=== PATIENT | female | born 2000 | race Hispanic/Latino ===

== ENCOUNTER 2021-05-18 22:50 | Emergency (ER) | payer MEDICAID, OTHER ==
[~2021-05-18] VITALS: Ht 157.5 cm; Wt 89.4 kg
[2021-05-18 23:46] LABS: BASOPHILS % (AUTO) 0.2 % (0.0-5.0); EOSINOPHILS % (AUTO) 0.1 % (0.0-8.0); HEMATOCRIT 45.9 % (36-48); LYMPHOCYTES % (AUTO) 24.4 % (21.0-51.0); MEAN CORPUSCULAR HEMOGLOBIN 30.5 pg (27.0-33.0); MEAN CORPUSCULAR HGB CONC 34.6 g/dL (32.0-36.0); MEAN CORPUSCULAR VOLUME 88.1 fL (79-99); MONOCYTES % (AUTO) 11.6 % (3.0-13.0); NEUTROPHILS % (AUTO) 63.5 % (40.0-77.0); PLATELET COUNT (AUTO) 309 K/uL (130-400); RED BLOOD CELL COUNT(AUTO) 5.21 MIL/uL (4.00-5.50); RED CELL DISTRIBUTION WIDTH 12.4 % (11.0-15.5); WHITE BLOOD COUNT (AUTO) 8.5 K/uL (4.8-10.8)
[2021-05-18 23:54] LABS: APPEARANCE,URINE Turbid (CLEAR); BILIRUBIN,URINE Moderate (NEGATIVE); COLOR,URINE Dark Yellow (YELLOW); GLUCOSE, URINE (UA) Negative (NEGATIVE); KETONES,URINE >=160 mg/dL (NEGATIVE); LEUKOCYTE ESTERASE ,URINE Small (NEGATIVE); NITRATE,URINE Negative (NEGATIVE); OCCULT BLOOD,URINE Negative (NEGATIVE); PROTEIN,URINE POS 2+ mg/dL (NEGATIVE)
[2021-05-19] MEDS: ONDANSETRON 4MG INJ IVP ONE
[2021-05-19] MEDS: LACTATED RINGERS 1000ML 1,000 ML IV ONE
[2021-05-19 00:09] LABS: ALBUMIN 4.1 g/dL (3.5-5.0); BILIRUBIN,TOTAL 0.9 mg/dL (0.2-1.0); CREATININE 0.7 mg/dL (0.5-1.5); TOTAL PROTEIN, SERUM 8.2 g/dL (6.0-8.3)
[2021-05-19 00:12] LABS: POTASSIUM 2.8 mmol/L (3.5-5.1)
[2021-05-19] MEDS ORDERED: POTASSIUM CHLORIDE 20 MEQ/100 ML BAG IV SCH (00:30)
[2021-05-19] MEDS: ONDANSETRON 4MG INJ ONE (00:33)
[2021-05-19] MEDS: POTASSIUM CHLORIDE 20MEQ/100ML 100 ML IV ONE (00:34)
[2021-05-19 00:37] LABS: BACTERIA,URINE Moderate /HPF (None Seen); MUCUS,URINE Moderate LPF (None Seen); SQUAMOUS EPITHELIAL CELL,UR Many /HPF (0-2)
[2021-05-19] MEDS: LACTATED RINGERS 1000ML IV ONE (02:00)
[2021-05-19 05:00] VITALS: BP 115/70
[2021-05-19] MEDS ORDERED: ONDA4TAB10 PO (05:26)
[2021-05-19] MEDS ORDERED: PREN-67 PO (05:27)
== END 2021-05-19 05:55 | disposition home or self-care (01) ==
LOC: EDH 22:50
DX: O21.1 Hyperemesis gravidarum with metabolic disturbance (principal); E86.0 Dehydration; O99.281 Endocrine, nutritional and metabolic diseases complicating pregnancy, first trimester; O41.10 Infection of amniotic sac and membranes, unspecified; O46.91 Antepartum hemorrhage, unspecified, first trimester; O99.511 Diseases of the respiratory system complicating pregnancy, first trimester; J45.909 Unspecified asthma, uncomplicated; Z3A.08 8 weeks gestation of pregnancy
CPT/HCPCS: 36415 ×2; 76817; 80053; 81001; 84132; 84702; 85025; 86900; 86901; 87088; 96361; 96365; 96375; 99285; J2405; J3480

== ENCOUNTER 2021-06-10 22:25 | Observation (INO) | payer OTHER ==
[~2021-06-10] VITALS: Ht 157.5 cm; Wt 87.1 kg
[~2021-06-10 22:25] MED LIST: ONDA4TAB10 PO; PREN-67 PO
[2021-06-10] MEDS ORDERED: ONDANSETRON 4MG INJ IVP ONE (23:00)
[2021-06-10] MEDS ORDERED: LACTATED RINGERS 1000ML 1,000 ML IV ONE (23:00)
[2021-06-10 23:09] LABS: BASOPHILS % (AUTO) 0.1 % (0.0-5.0); EOSINOPHILS % (AUTO) 0.1 % (0.0-8.0); HEMATOCRIT 42.9 % (36-48); LYMPHOCYTES % (AUTO) 18.3 % (21.0-51.0); MEAN CORPUSCULAR HEMOGLOBIN 30.9 pg (27.0-33.0); MEAN CORPUSCULAR HGB CONC 36.1 g/dL (32.0-36.0); MEAN CORPUSCULAR VOLUME 85.5 fL (79-99); MONOCYTES % (AUTO) 8.8 % (3.0-13.0); NEUTROPHILS % (AUTO) 72.4 % (40.0-77.0); PLATELET COUNT (AUTO) 239 K/uL (130-400); RED BLOOD CELL COUNT(AUTO) 5.02 MIL/uL (4.00-5.50); WHITE BLOOD COUNT (AUTO) 6.8 K/uL (4.8-10.8)
[2021-06-10 23:43] LABS: ALBUMIN 3.8 g/dL (3.5-5.0); CREATININE 0.7 mg/dL (0.5-1.5); TOTAL PROTEIN, SERUM 7.8 g/dL (6.0-8.3)
[2021-06-10 23:44] LABS: POTASSIUM 2.9 mmol/L (3.5-5.1)
[2021-06-10] MEDS ORDERED: POTASSIUM CHLORIDE 20MEQ/100ML 100 ML IV ONE (23:52)
[2021-06-10 23:57] LABS: APPEARANCE,URINE Turbid (CLEAR); BILIRUBIN,URINE Large (NEGATIVE); COLOR,URINE Orange (YELLOW); GLUCOSE, URINE (UA) Negative (NEGATIVE); KETONES,URINE >=160 mg/dL (NEGATIVE); LEUKOCYTE ESTERASE ,URINE Small (NEGATIVE); NITRATE,URINE Positive (NEGATIVE); OCCULT BLOOD,URINE Negative (NEGATIVE); PH,URINE 5.5 (5.0-8.0); PROTEIN,URINE POS 2+ mg/dL (NEGATIVE)
[2021-06-11] VITALS (7 sets, daily range): BP systolic 104–123; BP diastolic 62–81
[2021-06-11] MEDS ORDERED: POTASSIUM CHLORIDE 20 MEQ/100 ML BAG IV ONE
[2021-06-11 00:07] LABS: RBC,URINE None Seen /HPF (0-1); WBC,URINE 0-1 /HPF (0-1)
[2021-06-11 00:08] LABS: BACTERIA,URINE Moderate /HPF (None Seen); MUCUS,URINE Many LPF (None Seen); SQUAMOUS EPITHELIAL CELL,UR Moderate /HPF (0-2)
[2021-06-11] MEDS ORDERED: ACETAMINOPHEN 500 MG TABLET PO PRN (03:00)
[2021-06-11] MEDS ORDERED: POTASSIUM CHLORIDE 20MEQ/100ML 100 ML IV PRN (03:00)
[2021-06-11] MEDS ORDERED: ONDANSETRON 4MG INJ IVP PRN (03:00)
[2021-06-11] MEDS: PHARMACY COMMUNICATION MISC SCH ×2 (04:00→22:00)
[2021-06-11] MEDS: KCL 20 MEQ ERTAB PO PRN ×4 (04:04→10:41)
[2021-06-11 07:02] LABS: POTASSIUM 3.2 mmol/L (3.5-5.1)
[2021-06-11] MEDS: PANTOPRAZOLE 40 MG/VIAL IVP SCH (09:29)
[2021-06-11] MEDS: POTASSIUM CHLORIDE 20MEQ/10ML 20 MEQ in LACTATED RINGERS 1000ML 1,000 ML IV SCH ×2 (09:54→18:29)
[2021-06-11] MEDS: ONDANSETRON ODT 4MG TAB SL SCH ×2 (14:14→21:39)
[2021-06-12] MEDS: POTASSIUM CHLORIDE 20MEQ/10ML 20 MEQ in LACTATED RINGERS 1000ML 1,000 ML IV SCH ×2 (01:10→07:44)
[2021-06-12] MEDS: PHARMACY COMMUNICATION MISC SCH (02:55)
[2021-06-12 04:22] VITALS: BP 113/66
[2021-06-12] MEDS: ONDANSETRON ODT 4MG TAB SL SCH (06:10)
[2021-06-12 07:35] VITALS: BP 112/62
[2021-06-12] MEDS: PANTOPRAZOLE 40 MG/VIAL IVP SCH (09:31)
[2021-06-12] MEDS: KCL 20 MEQ ERTAB PO PRN (09:32)
[2021-06-12 11:13] VITALS: BP 114/77
== END 2021-06-12 12:05 | disposition home or self-care (01) ==
LOC: EDH 22:25 → EDHIP 06-11 01:38 → WSH 06-11 02:07
PROVIDERS: ADMIT Obstetrics & Gynecology; ATTEND Obstetrics & Gynecology
DX: O21.1 Hyperemesis gravidarum with metabolic disturbance (principal); O99.281 Endocrine, nutritional and metabolic diseases complicating pregnancy, first trimester; O20.8 Other hemorrhage in early pregnancy; O26.893 Other specified pregnancy related conditions, third trimester; E86.0 Dehydration; Z3A.11 11 weeks gestation of pregnancy; Z79.899 Other long term (current) drug therapy; Z98.890 Other specified postprocedural states
CPT/HCPCS: 36415 ×3; 76700; 76801; 80051; 80053; 81001; 82010; 83690; 84132; 84702; 85025; 87088; 96361; 96365; 96366 ×2; 96375 ×2; 96376 ×2; 99285; C9113 ×2; G0378 ×33; J2405 ×2; J3480 ×2; J7120

== ENCOUNTER 2021-08-25 14:18 | Observation (INO) | payer OTHER ==
[~2021-08-25] VITALS: Ht 157.5 cm; Wt 89.4 kg
[~2021-08-25 14:18] MED LIST changes: -ONDA4TAB10 PO
[2021-08-25] MEDS ORDERED: LACTATED RINGERS 1000ML 1,000 ML IV ONE (14:53)
[2021-08-25 16:02] LABS: APPEARANCE,URINE CLOUDY (CLEAR); BILIRUBIN,URINE MODERATE (NEGATIVE); COLOR,URINE DARK YELLOW (YELLOW); GLUCOSE, URINE (UA) NEGATIVE (NEGATIVE); KETONES,URINE >=80 mg/dL (NEGATIVE); LEUKOCYTE ESTERASE ,URINE NEGATIVE (NEGATIVE); NITRATE,URINE POSITIVE (NEGATIVE); OCCULT BLOOD,URINE NEGATIVE (NEGATIVE); PH,URINE 5.5 (5.0-8.0); PROTEIN,URINE 100 mg/dL (NEGATIVE)
[2021-08-25 16:21] LABS: BACTERIA,URINE Few /HPF (None Seen); CALCIUM OXALATE CRYSTALS,UR Few /LPF (None Seen); RBC,URINE None Seen /HPF (0-1)
[2021-08-25] MEDS: ONDANSETRON 4MG INJ IVP PRN (17:21)
[2021-08-25] MEDS: CEFAZOLIN SODIUM 1 GM VIAL IVP SCH (17:22)
[2021-08-25] MEDS: LACTATED RINGERS 1000ML 1,000 ML IV PRN (17:22)
[2021-08-25 17:43] VITALS: BP 125/72
[2021-08-25] MEDS ORDERED: ONDA8TAB12 PO (18:03)
[2021-08-25] MEDS ORDERED: CALC500T7 PO (18:03)
[2021-08-25 19:29] VITALS: BP 115/77
[2021-08-25] MEDS ORDERED: MAG/ALUM/SIMETH 30 ML UDCUP PO PRN (21:00)
[2021-08-25 23:42] VITALS: BP 106/64
[2021-08-26] MEDS: CEFAZOLIN SODIUM 1 GM VIAL IVP SCH ×3 (01:26→17:36)
[2021-08-26] MEDS: LACTATED RINGERS 1000ML 1,000 ML IV PRN ×3 (01:28→17:36)
[2021-08-26 03:32] VITALS: BP 101/68
[2021-08-26] MEDS: ONDANSETRON 4MG INJ IVP PRN ×2 (06:15→15:22)
[2021-08-26 07:39] VITALS: BP 124/80
[2021-08-26 11:12] VITALS: BP 128/88
[2021-08-26 16:31] VITALS: BP 108/67
[2021-08-26] MEDS ORDERED: METOCLOPRAMIDE 10 MG TABLET PO ONE (19:00)
[2021-08-26 19:35] VITALS: BP 96/64
[2021-08-26 23:40] VITALS: BP 101/63
[2021-08-27] MEDS: CEFAZOLIN SODIUM 1 GM VIAL IVP SCH ×3 (00:50→18:00)
[2021-08-27] MEDS: ONDANSETRON 4MG INJ IVP PRN (00:58)
[2021-08-27 03:52] VITALS: BP 100/69
[2021-08-27] MEDS: LACTATED RINGERS 1000ML 1,000 ML IV PRN ×3 (03:59→22:12)
[2021-08-27 07:00] VITALS: BP 110/67
[2021-08-27] MEDS: METOCLOPRAMIDE 10 MG TABLET PO SCH ×3 (10:10→16:59)
[2021-08-27 10:40] VITALS: BP 119/69
[2021-08-27] MEDS: ONDANSETRON 4MG INJ IVP SCH ×2 (10:58→19:08)
[2021-08-27 13:31] LABS: ALBUMIN 2.5 g/dL (3.5-5.0); BILIRUBIN,TOTAL 0.6 mg/dL (0.2-1.0); CREATININE 0.4 mg/dL (0.5-1.5); POTASSIUM 3.2 mmol/L (3.5-5.1)
[2021-08-27 15:33] VITALS: BP 112/60
[2021-08-27 20:26] VITALS: BP 98/51
[2021-08-28 00:02] VITALS: BP 113/73
[2021-08-28] MEDS: CEFAZOLIN SODIUM 1 GM VIAL IVP SCH ×2 (00:35→08:14)
[2021-08-28 00:37] VITALS: BP 100/62
[2021-08-28] MEDS: ONDANSETRON 4MG INJ IVP SCH ×2 (03:47→11:46)
[2021-08-28 03:50] VITALS: BP 105/51
[2021-08-28 07:28] VITALS: BP 108/69
[2021-08-28] MEDS: METOCLOPRAMIDE 10 MG TABLET PO SCH ×2 (08:06→11:38)
[2021-08-28] MEDS: LACTATED RINGERS 1000ML 1,000 ML IV PRN (08:07)
[2021-08-28] MEDS ORDERED: BISACODYL 5 MG TABLET.DR PO PRN (08:30)
[2021-08-28] MEDS ORDERED: ONDANSETRON 4MG INJ IVP SCH (10:00)
[2021-08-28] MEDS ORDERED: METO10TA41 PO (12:48)
== END 2021-08-28 13:15 | disposition home or self-care (01) ==
LOC: EDH 14:18 → LDH 14:19 → UNDOADMOB 14:19 → LDH 15:36 → WSH 17:40
PROVIDERS: ADMIT Obstetrics & Gynecology; ATTEND Obstetrics & Gynecology
DX: O21.1 Hyperemesis gravidarum with metabolic disturbance (principal); O23.42 Unspecified infection of urinary tract in pregnancy, second trimester; Z3A.20 20 weeks gestation of pregnancy
CPT/HCPCS: 36415; 76705; 80053; 81001; 87088; 96361 ×4; 96374; 96375; 96376 ×3; G0378 ×67; J0690 ×9; J2405 ×8; J7120 ×3; 96360; 96368

== ENCOUNTER 2021-10-11 23:33 | Observation (INO) | payer OTHER, MEDICAID ==
[~2021-10-11] VITALS: Ht 157.5 cm; Wt 87.1 kg
[~2021-10-11 23:33] MED LIST changes: +CALC500T7 PO; +METO10TA41 PO; +ONDA8TAB12 PO; -PREN-67 PO
[2021-10-11 23:35] VITALS: BP 115/72
[2021-10-12 00:09] LABS: BILIRUBIN,URINE NEGATIVE (NEGATIVE); COLOR,URINE YELLOW (YELLOW); GLUCOSE, URINE (UA) NEGATIVE (NEGATIVE); KETONES,URINE >=80 mg/dL (NEGATIVE); LEUKOCYTE ESTERASE ,URINE TRACE (NEGATIVE); NITRATE,URINE NEGATIVE (NEGATIVE); OCCULT BLOOD,URINE NEGATIVE (NEGATIVE); PROTEIN,URINE 30 mg/dL (NEGATIVE); UROBILINOGEN,URINE 0.2 mg/dL (0.2-1.0)
[2021-10-12 00:13] LABS: APPEARANCE,URINE SLIGHTLY CLOUDY (CLEAR)
[2021-10-12 00:17] LABS: RBC,URINE 0-1 /HPF (0-1)
[2021-10-12 00:18] LABS: BACTERIA,URINE Few /HPF (None Seen); SQUAMOUS EPITHELIAL CELL,UR Many /HPF (0-2)
[2021-10-12 00:21] LABS: AMPHET/METH SCREEN,URINE NEGATIVE (NEGATIVE); BENZODIAZEPINES SCREEN,URINE NEGATIVE (NEGATIVE); CANNABINOID SCREEN,URINE NEGATIVE (NEGATIVE); COCAINE SCREEN,URINE NEGATIVE (NEGATIVE); PHENCYCLIDINE SCREEN,URINE NEGATIVE (NEGATIVE)
[2021-10-12] MEDS ORDERED: LACTATED RINGERS 1000ML 1,000 ML IV ONE (01:19)
[2021-10-12] MEDS ORDERED: ONDANSETRON 4MG INJ IVP ONE (01:30)
[2021-10-12] MEDS ORDERED: ACETAMINOPHEN 500 MG TABLET PO ONE (01:30)
[2021-10-14 09:13] LABS: OPIATES SCREEN URINE Negative ng/mL (Cutoff=300)
== END 2021-10-12 02:30 | disposition home or self-care (01) ==
LOC: EDH 23:33 → LDH 23:52
PROVIDERS: ADMIT Obstetrics & Gynecology; ATTEND Obstetrics & Gynecology
DX: O98.513 Other viral diseases complicating pregnancy, third trimester (principal); U07.1 COVID-19; O21.2 Late vomiting of pregnancy; O26.893 Other specified pregnancy related conditions, third trimester; R50.9 Fever, unspecified; R10.30 Lower abdominal pain, unspecified; O36.8130 Decreased fetal movements, third trimester, not applicable or unspecified; Z3A.28 28 weeks gestation of pregnancy; Z79.899 Other long term (current) drug therapy
CPT/HCPCS: 80305; 81001; 96374; 96361; 59025; 87635; G0378 ×2; G0379; J7120; J2405; 96360

== ENCOUNTER 2021-10-17 17:57 | Observation (INO) | payer OTHER, MEDICAID ==
[~2021-10-17] VITALS: Ht 157.5 cm; Wt 87.1 kg
[2021-10-17 17:59] VITALS: BP 109/78
[2021-10-17 18:44] LABS: APPEARANCE,URINE CLEAR (CLEAR); BILIRUBIN,URINE MODERATE (NEGATIVE); COLOR,URINE YELLOW (YELLOW); GLUCOSE, URINE (UA) NEGATIVE (NEGATIVE); KETONES,URINE >=80 mg/dL (NEGATIVE); LEUKOCYTE ESTERASE ,URINE NEGATIVE (NEGATIVE); NITRATE,URINE NEGATIVE (NEGATIVE); OCCULT BLOOD,URINE NEGATIVE (NEGATIVE); PROTEIN,URINE 30 mg/dL (NEGATIVE)
[2021-10-17 18:50] LABS: BACTERIA,URINE Few /HPF (None Seen); MUCUS,URINE Few LPF (None Seen); RBC,URINE 0-1 /HPF (0-1); SQUAMOUS EPITHELIAL CELL,UR Few /HPF (0-2)
[2021-10-17 18:51] LABS: HYALINE CASTS, URINE 0-1 /LPF (0-1 /LPF); OTHER CASTS, URINE WBC CASTS 1+ /LPF (None Seen)
[2021-10-17] MEDS ORDERED: LACTATED RINGERS 1000ML 1,000 ML IV ONE (19:25)
[2021-10-17] MEDS ORDERED: ONDANSETRON 4MG INJ ONE (20:55)
[2021-10-17] MEDS ORDERED: METOCLOPRAMIDE 10 MG/2 ML VIAL ONE (20:55)
[2021-10-17] MEDS: LACTATED RINGERS 1000ML 1,000 ML IV SCH (23:19)
[2021-10-18] MEDS: ONDANSETRON 4MG INJ IVP PRN ×2 (00:52→08:45)
[2021-10-18] MEDS: METOCLOPRAMIDE 10 MG/2 ML VIAL IVP SCH ×2 (04:51→13:30)
[2021-10-18] MEDS: LACTATED RINGERS 1000ML 1,000 ML IV SCH (08:45)
== END 2021-10-18 17:05 | disposition home or self-care (01) ==
LOC: EDH 17:57 → LDH 17:58
PROVIDERS: ADMIT Obstetrics & Gynecology; ATTEND Obstetrics & Gynecology
DX: O98.513 Other viral diseases complicating pregnancy, third trimester (principal); U07.1 COVID-19; O21.2 Late vomiting of pregnancy; O46.93 Antepartum hemorrhage, unspecified, third trimester; O26.893 Other specified pregnancy related conditions, third trimester; R07.89 Other chest pain; R10.9 Unspecified abdominal pain; Z3A.29 29 weeks gestation of pregnancy
CPT/HCPCS: 96361 ×4; 81001; 87635; 96374; 96376; 96375; G0378 ×23; G0379; J7120 ×3; J2405 ×3; J2765 ×3; 96360

== ENCOUNTER 2024-12-11 11:35 | Emergency (ER) | payer MEDICAID, OTHER ==
[~2024-12-11] VITALS: Ht 157.5 cm; Wt 97.5 kg
[~2024-12-11 11:35] MED LIST changes: +ONDA-245 PO; -ONDA8TAB12 PO
--- NOTE | 2024-12-11 11:50 | ERN ---
General Chief Complaint: Adult-Asthma Stated Complaint: SOB WITH HX OF ASTHMA Time Seen by MD: 11:41 Time Seen by Midlevel: 11:41 Source: patient History of Present Illness Initial Comments 24-year-old female presents to the emergency department by EMS due to shortness of breath onset this morning. Patient reports a history of asthma therefore used an old inhaler without any relief. Patient received a nebulized treatment by EMS without any relief. Reports she feels her throat closing. Denies any cough, congestion, fever, abdominal pain, chest pain or further associated symptoms. Denies further medical history. Surgical history of tubal ligation Allergies: Coded Allergies: No Known Drug Allergies (Unverified Allergy, Unknown, 05/19/21) No Known Drug Intolerances (Unverified Allergy, Unknown, 10/11/21) no known drug allergies Home Meds Active Scripts Amoxicillin (Amoxicillin) 500 Mg Capsule, 1 CAP PO BID for 10 Days, #20 CAP 0 Refills Prov:MARISABEL REEVES PAC 12/11/24 Reported Medications Metoclopramide HCl (Reglan 10 mg Tab) 10 Mg Tablet, 10 MG PO TIDAC, #90 TAB 08/28/21 Calcium Carbonate (Tums) 200 Mg Tab.chew, 200 MG PO DAILY PRN for HEARTBURN, TAB.CHEW 08/25/21 Ondansetron (Ondansetron Odt) 8 Mg Tab.rapdis, 8 MG PO Q8H PRN for NA USEA/VOMITING, TAB 08/25/21 Past Medical History Past Medical History: Asthma Past Surgical History: None Female( History) : 1 Para: 0 Aborts: 0 ROS Dictation Constitutional: Negative for fever,chills, and weight loss Eyes: Negative for injury, pain,redness, and discharge ENT: Negative for injury,pain or swelling Cardiovascular: Negative for chest pain, palpitations, and edema Respiratory: Positive for shortness of breath Negative for cough, and wheezing, Abdomen/GI: Negative for abdominal pain, nausea, vomiting, diarrhea, and constipation Back: Negative for injury and pain : Negative for painful urination, bleeding or discharge MS/Extremity: Negative for injury and deformity Skin: Negative for rash, and discoloration Neuro: Negative for headache, weakness, numbness, tingling, and seizure Psych: Negative for suicide ideation, homicidal ideation, and hallucinations Physical Exam Physical Exam Dictation General: awake, alert, no acute distress Head/Face: Normocephalic, atraumatic Eyes: PERRL, EOMI, normal conjunctiva ENT: oral cavity clear, oral mucosa moist, bilateral tonsillar swelling, oropharynx erythema Neck: Supple, normal range of motion Cardiovascular: RRR, normal S1/S2 Respiratory: CTAB, no respiratory distress, no rales or wheezes Abdomen: Soft, non-tender, non-distended, no guarding or rebound. Skin: Warm, dry, normal turgor, no rash MS/Extremity: Pulses equal, no cyanosis, neurovascular intact, FROM Neuro: COAx4, GCS 15, strength 5/5, CN 2-12 intact, normal cerebellar exam, normal gait Psych: Normal behavior, mood, and affect normal Results Laboratory and Microbiology Lab and Micro Result Laboratory Tests Test 12/11/24 12:00 12/11/24 12:08 12/11/24 12:36 White Blood Count 6.7 K/uL (4.8-10.8) Red Blood Count 4.69 MIL/uL (4.00-5.50) Hemoglobin 14.2 g/dL (12.0-16.0) Hematocrit 41.8 % (36-48) Mean Corpuscular Volume 89.1 fL (79-99) Mean Corpuscular Hemoglobin 30.3 pg (27.0-33.0) Mean Corpuscular Hemoglobin Concent 34.0 g/dL (32.0-36.0) Red Cell Distribution Width 12.5 % (11.0-15.5) Platelet Count 310 K/uL (130-400) Mean Platelet Volume 9.6 fL (7.5-10.5) Immature Granulocyte % (Auto) 0.1 % (0-1) Neutrophils (%) (Auto) 49.9 % (40.0-77.0) Lymphocytes (%) (Auto) 38.7 % (21.0-51.0) Monocytes (%) (Auto) 9.4 % (3.0-13.0) Eosinophils (%) (Auto) 1.6 % (0.0-8.0) Basophils (%) (Auto) 0.3 % (0.0-5.0) Neutrophils # (Auto) 3.3 K/uL (1.8-7.7) Lymphocytes # (Auto) 2.6 K/uL (1.0-4.8) Monocytes # (Auto) 0.6 K/uL (0.1-1.0) Eosinophils # (Auto) 0.11 K/uL (0.00-0.70) Basophils # (Auto) 0.02 K/uL (0.00-0.20) Absolute Immature Granulocyte (auto 0.01 K/uL (0-1) Nucleated Red Blood Cells 0.0 % (0.0-0.19) Sodium Level 141 mmol/L (136-145) Potassium Level 3.5 mmol/L (3.5-5.1) Chloride Level 106 mmol/L (101-111) Carbon Dioxide Level 26 mmol/L (21-32) Blood Urea Nitrogen 13 mg/dL (7-18) Creatinine 0.6 mg/dL (0.5-1.0) Glomerular Filtration Rate Calc 127 mL/min (>90) Random Glucose 120 mg/dL (70-105) H Total Calcium 8.4 mg/dL (8.5-10.1) L Influenza Type A Antigen Negative For Type A Influenza Type B Antigen Negative For Type B SARS-CoV-2 Antigen (Rapid) PRESUMPTIVE NEGATIVE Urine Color LIGHT-YELLOW (YELLOW) Urine Appearance CLEAR (CLEAR) Urine pH 7.5 (5.0-8.0) Urine Specific [place] 1.027 (1.001-1.031) Urine Protein NEGATIVE mg/dL (NEGATIVE) Urine Glucose (UA) NEGATIVE mg/dL (NEGATIVE) Urine Ketones NEGATIVE mg/dL (NEGATIVE) Urine Occult Blood NEGATIVE (NEGATIVE) Urine Nitrate NEGATIVE (NEGATIVE) Urine Bilirubin NEGATIVE mg/dL (NEGATIVE) Urine Urobilinogen 0.2 mg/dL (0.2-1.0) Urine Leukocyte Esterase NEGATIVE Anurag/uL Urine RBC 2-5 /HPF (0-1) H Urine WBC 2-5 /HPF (0-1) H Urine Squamous Epithelial Cells FEW /HPF (0-2) Urine Bacteria None /HPF (None Seen) Urine HCG, Qualitative NEGATIVE (NEGATIVE) Labs Reviewed?: Yes EKG/XRAY/US/CT/MRI X-RAY Comment REASON: SOB ORDERING PHYSICIAN: MARISABEL REEVES PAC PROCEDURE: CXR1VW - CHEST 1VW EXAM: CR Chest, 1 View. CLINICAL HISTORY: SOB COMPARISON: Radiograph dated February 11, 2014 FINDINGS: LUNGS: The lungs show no infiltrate or other acute finding. PLEURAL SPACES: No evidence of pleural effusion or pneumothorax. MEDIASTINUM: The cardiomediastinal silhouette is within normal limits. BONES: No acute osseous abnormality. IMPRESSION: No acute cardiopulmonary pathology is evident. /[place] DICTATED BY: MAXIMO RIZZO Jr., MD DATE: 12/11/24 1458 MDM MDM: Differential diagnosis: Pharyngitis, viral illness, asthma exacerbation Rationale: 24-year-old female presents to the emergency department by EMS due to shortness of breath onset this morning. Patient reports a history of asthma therefore used an old inhaler without any relief. Patient received a nebulized treatment by EMS without any relief. Reports she feels her throat closing. Denies any cough, congestion, fever, abdominal pain, chest pain or further associated symptoms. Denies further medical history. Surgical history of tubal ligation Per physical examination patient is in no acute distress, nonlabored breathing, no wheezing auscultated. Oropharynx erythematous, bilateral tonsillar swelling. Labs obtained are nonspecific, UA negative for urinary tract infection, SARs influenza negative. Patient politely refused strep A testing. X-rays indicates no acute cardiopulmonary abnormalities. Diphenhydramine and Solu-Medrol were administered in the ED, patient verbalized some throat discomfort improvement. Patient was educated on findings and diagnosis. Antibiotics prescribed for outpatient treatment of pharyngitis. Advised to follow up with PCP. Return to the emergency department if any worsening symptoms. Patient verbalized understanding. Patient stable for discharge. There are no social concerns with this patient. I independently interpreted the test that were performed, results were reviewed by me and considered findings on radiology if ordered. Medical management and examination interpretation discussions were had by me with other qualified healthcare professionals as indicated for the patient's care. ED Course Orders Procedure Category Date Status Time Cbc With Differential LAB 12/11/24 Complete 11:45 Basic Metabolic Panel LAB 12/11/24 Complete 11:45 Urinalysis LAB 12/11/24 Complete W/Microscopic 11:45 ,Urine Test LAB 12/11/24 Complete 11:45 Chest 1vw RAD 12/11/24 Resulted 11:45 Influenza Type A & B, LAB 12/11/24 Complete Rapid 11:45 Covid19 (Sars Antigen LAB 12/11/24 Complete Rapid) 11:45 Methylprednisolone PHA 12/11/24 Complete Succ 125mg (Solu-Medr 12:00 Diphenhydramine Hcl PHA 12/11/24 Complete (Benadryl Cap) 12:00 Current Medications Medications (Trade) Dose Ordered Sig/Drew Route PRN Reason Start Time Stop Time Status Last Admin Dose Admin Diphenhydramine HCl (BENAdryl CAP) 25 mg ONCE ONCE PO 12/11/24 12:00 12/11/24 12:01 DC 12/11/24 12:12 Methylprednisolone Sodium Succinate (Solu-medROL 125MG) 125 mg ONCE ONCE IM 12/11/24 12:00 12/11/24 12:01 DC 12/11/24 12:12 Vital Signs Date Time Temp Pulse Resp B/P (MAP) Pulse Ox O2 Delivery O2 Flow Rate FiO2 12/11/24 15:10 99.1 92 17 121/74 98 Room Air* 0 21 12/11/24 12:22 98.1 86 19 144/87 100 Room Air* 0 21 12/11/24 11:46 98.4 98 22 130/72 99 Room Air 0 DX & DISP Disposition: Discharge Departure Impression: Primary Impression: Pharyngitis Condition: Stable Scripts Amoxicillin (Amoxicillin) 500 Mg Capsule 1 CAP PO BID for 10 Days, #20 CAP 0 Refills Prov: MARISABEL REEVES 12/11/24 Additional Instructions: Discharge home. Rest. Follow up with primary care DrHortencia in 24 hours. Return to the ER for any acute changes or worsening symptoms. If any medications were prescribed take as directed. Okay to continue home medications unless otherwise discussed during your visit in the emergency room today. Patient was also advised to follow-up with primary care physician in 1 to 2 days for continued monitoring. Referrals: ANDREZ FREEMAN MD (PCP) I performed the substantive portion of the visit. I have reviewed and personally made and approve the management plan that is documented in the notes by myself or the ERIC. I acknowledge full responsibility for the patient's management plan. MARISABEL REEVES Dec 11, 2024 11:50
[2024-12-11 12:11] LABS: IMMATURE GRANULOCYTE ABSOLUTE 0.01 K/uL (0-1); NUCLEATED RED BLOOD CELLS 0.0 % (0.0-0.19); PLATELET COUNT (AUTO) 310 K/uL (130-400); RED BLOOD CELL COUNT(AUTO) 4.69 MIL/uL (4.00-5.50); RED CELL DISTRIBUTION WIDTH 12.5 % (11.0-15.5); WHITE BLOOD COUNT (AUTO) 6.7 K/uL (4.8-10.8)
[2024-12-11 12:17] LABS: CREATININE 0.6 mg/dL (0.5-1.0); GLOMERULAR FILTR. RATE CALC 127.0 mL/min (>90); GLUCOSE,RANDOM 120.0 mg/dL (70-105); SODIUM SERUM 141.0 mmol/L (136-145); UREA NITROGEN, BLOOD 13.0 mg/dL (7-18)
[2024-12-11 12:48] LABS: APPEARANCE,URINE CLEAR (CLEAR); GLUCOSE, URINE (UA) NEGATIVE (NEGATIVE); LEUKOCYTE ESTERASE ,URINE NEGATIVE Leu/uL (NEGATIVE); NITRATE,URINE NEGATIVE (NEGATIVE); OCCULT BLOOD,URINE NEGATIVE (NEGATIVE)
[2024-12-11 12:51] LABS: SQUAMOUS EPITHELIAL CELL,UR FEW /HPF (0-2)
--- NOTE | 2024-12-11 12:51 | NUR ---
PATIENT POLITELY DECLINED STREP TEST DUE TO POOR GAG REFLEX, PATIENT RESTING IN BED, CALL LIGHT IN REACH
[2024-12-11 12:57] LABS: HCG,QUALITATIVE URINE NEGATIVE (NEGATIVE)
[2024-12-11 13:33] LABS: COVID19 (SARS ANTIGEN RAPID) PRESUMPTIVE NEGATIVE (NEGATIVE); INFLUENZA TYPE A Negative For Type A (NEGATIVE); INFLUENZA TYPE B Negative For Type B (NEGATIVE)
--- NOTE | 2024-12-11 13:52 | HMCIMG ---
EXAM: CR Chest, 1 View. CLINICAL HISTORY: SOB COMPARISON: Radiograph dated February 11, 2014 FINDINGS: LUNGS: The lungs show no infiltrate or other acute finding. PLEURAL SPACES: No evidence of pleural effusion or pneumothorax. MEDIASTINUM: The cardiomediastinal silhouette is within normal limits. BONES: No acute osseous abnormality. IMPRESSION: No acute cardiopulmonary pathology is evident. /[place]
[2024-12-11] MEDS ORDERED: AMOX500C2 PO (14:25)
[2024-12-11 15:10] VITALS: BP 121/74; PULSE 92; RESP 17; TEMP 99.2; O2SAT 98
--- NOTE | 2024-12-11 15:10 | NUR ---
DC PATIENT WAS DC'D BY MARISABEL BURNS I DC'D PATIENTS IV WITH CATH STILL INTACT ANF APPLIED 2X2 GAUZE WITH COBAN I EXPLAINED TO PATIENT TO FOLLOW UP WITH PCP, PROVIDED INFO BASED ON DIAGNOSIS, PRESCRIPTIONS, AND ANSWERED ANY FOLLOW UP QUESTIONS, PATIENT AMBULATED OUT OF, NO COMPLICATIONS
== END 2024-12-11 15:07 | disposition home or self-care (01) ==
LOC: EDH 11:35
DX: J02.9 Acute pharyngitis, unspecified (principal); J45.909 Unspecified asthma, uncomplicated; Z20.822 Contact with and (suspected) exposure to COVID-19; Z79.899 Other long term (current) drug therapy; Z98.51 Tubal ligation status
CPT/HCPCS: 99284; 71045; 87426; 80048; 85025; 87804 ×2; 81001; 81025; 36415; 96372; Q0163; J2919